=== PATIENT | male | born 1940 | race Caucasian/White ===

== ENCOUNTER 2023-01-03 04:34 | Emergency (ER) | payer MEDICARE, OTHER ==
[2023-01-03 05:44] LABS: APPEARANCE,URINE SLIGHTLY CLOUDY (CLEAR); BILIRUBIN,URINE NEGATIVE (NEGATIVE); COLOR,URINE YELLOW (YELLOW); GLUCOSE,URINE NEGATIVE (NEGATIVE); KETONES,URINE NEGATIVE (NEGATIVE); LEUKOCYTE ESTERASE,URINE NEGATIVE (NEGATIVE); NITRITE,URINE NEGATIVE (NEGATIVE); OCCULT BLOOD,URINE MODERATE (NEGATIVE); PH,URINE 7.5 (5.0-8.0); PROTEIN,URINE NEGATIVE (NEGATIVE); UROBILINOGEN,URINE 0.2 EU/dL (0.2-1.0)
[2023-01-03 05:51] LABS: AMORPHOUS SEDIMENT,URINE NOT SEEN; BACTERIA,URINE FEW; EPITHELIAL CELLS,URINE NOT SEEN; MUCUS,URINE NOT SEEN; RBC,URINE 40-50 (0-5); WBC,URINE 0-5 (0-5)
[2023-01-03 06:03] LABS: BASOPHILS ABSOLUTE AUTO 0.01 K/uL (0.00-0.10); BASOPHILS PERCENT AUTO 0.3 % (0.1-1.3); EOSINOPHILS ABSOLUTE AUTO 0.02 K/uL (0.00-0.40); EOSINOPHILS PERCENT AUTO 0.5 % (0.0-5.4); HEMATOCRIT 37.8 % (38.4-49.7); HEMOGLOBIN 14.6 g/dL (12.9-16.9); IMMATURE GRAN ABSOLUTE AUTO 0.03 K/uL (0.00-0.23); IMMATURE GRAN PERCENT AUTO 0.8 % (0.0-0.7); LYMPHOCYTES ABSOLUTE AUTO 0.55 K/uL (0.8-3.3); LYMPHOCYTES PERCENT AUTO 14.9 % (11.4-47.7); MEAN CORPUSCULAR HEMOGLOBIN 33.1 pg (31.6-35.5); MEAN CORPUSCULAR HGB CONC 38.6 g/dL (31.6-35.5); MEAN CORPUSCULAR VOLUME 85.7 fL (81.4-99.0); MONOCYTES ABSOLUTE AUTO 0.42 K/uL (0.20-0.90); MONOCYTES PERCENT AUTO 11.4 % (3.3-12.6); NEUTROPHILS ABSOLUTE AUTO 2.66 K/uL (1.0-7.6); NEUTROPHILS PERCENT AUTO 72.1 % (40.0-78.1); PLATELET COUNT,PLT 97 K/uL (130-375); RED BLOOD CELL COUNT 4.41 M/uL (4.14-5.76); WHITE BLOOD CELL COUNT,WBC 3.7 K/uL (3.2-11.0)
[2023-01-03 06:34] LABS: CALCIUM 8.2 mg/dL (8.5-10.1); CREATININE 0.7 mg/dL (0.8-1.3); EST CRCL DRUG DOSING (CG) 73.44 mL/min; POTASSIUM,K 3.8 mmol/L (3.6-5.2)
[2023-01-03 06:35] LABS: ANION GAP 10.8 mmol/L (5.0-14.0)
[2023-01-03] MEDS ORDERED: Sodium Chloride 0.9% 1,000 ML IV ONE (06:45)
== END 2023-01-03 08:22 | disposition home or self-care (01) ==
LOC: JP.ED 04:34
DX: R33.9 Retention of urine, unspecified (principal); U07.1 COVID-19; I10 Essential (primary) hypertension; Z79.899 Other long term (current) drug therapy
CPT/HCPCS: 36415; 80048; 81001; 85025; 99283; C1758; J7030

== ENCOUNTER 2023-03-03 15:33 | Emergency (ER) | payer MEDICARE ==
[2023-03-03] MEDS ORDERED: valACYclovir 1,000 MG Tab PO SCH ×2 (17:45→21:00)
== END 2023-03-03 17:42 | disposition home or self-care (01) ==
LOC: JP.ED 15:33
DX: B02.9 Zoster without complications (principal); I10 Essential (primary) hypertension; Z79.899 Other long term (current) drug therapy
CPT/HCPCS: 99282; A9270

== ENCOUNTER 2023-06-30 04:38 | Emergency (ER) | payer MEDICARE | END 2023-06-30 05:48 | disposition home or self-care (01) | LOC: JP.ED 04:38 | DX: L20.9 Atopic dermatitis, unspecified (principal); I10 Essential (primary) hypertension; Z86.16 Personal history of COVID-19 | CPT/HCPCS: 99282 ==

== ENCOUNTER 2024-04-11 06:00 | Emergency (ER) | payer MEDICARE ==
[2024-04-11 06:41] LABS: APPEARANCE,URINE CLEAR (CLEAR); BILIRUBIN,URINE NEGATIVE (NEGATIVE); COLOR,URINE YELLOW (YELLOW); GLUCOSE,URINE NEGATIVE (NEGATIVE); KETONES,URINE NEGATIVE (NEGATIVE); LEUKOCYTE ESTERASE,URINE NEGATIVE (NEGATIVE); NITRITE,URINE NEGATIVE (NEGATIVE); OCCULT BLOOD,URINE NEGATIVE (NEGATIVE); PH,URINE 7.5 (5.0-8.0); PROTEIN,URINE NEGATIVE (NEGATIVE); UROBILINOGEN,URINE 0.2 EU/dL (0.2-1.0)
[2024-04-11 06:57] LABS: AMORPHOUS SEDIMENT,URINE RARE; BACTERIA,URINE NOT SEEN; EPITHELIAL CELLS,URINE NOT SEEN; MUCUS,URINE NOT SEEN; RBC,URINE NOT SEEN (0-5); WBC,URINE NOT SEEN (0-5)
== END 2024-04-11 07:22 | disposition home or self-care (01) ==
LOC: JP.ED 06:00
DX: R33.9 Retention of urine, unspecified (principal); I10 Essential (primary) hypertension; Z90.49 Acquired absence of other specified parts of digestive tract; Z87.891 Personal history of nicotine dependence; Z79.899 Other long term (current) drug therapy
CPT/HCPCS: 51798; 81001; 99283-25

== ENCOUNTER 2024-05-02 15:29 | Emergency (ER) | payer MEDICARE ==
[2024-05-02 16:44] LABS: APPEARANCE,URINE TURBID (CLEAR); BILIRUBIN,URINE NEGATIVE (NEGATIVE); COLOR,URINE RED (YELLOW); GLUCOSE,URINE NEGATIVE (NEGATIVE); KETONES,URINE NEGATIVE (NEGATIVE); NITRITE,URINE NEGATIVE (NEGATIVE); PROTEIN,URINE TRACE mg/dL (NEGATIVE)
[2024-05-02 16:46] LABS: AMORPHOUS SEDIMENT,URINE NOT SEEN; BACTERIA,URINE RARE; EPITHELIAL CELLS,URINE RARE; MUCUS,URINE FEW; RBC,URINE 75-100 (0-5); WBC,URINE 0-5 (0-5)
[2024-05-02 16:47] LABS: LEUKOCYTE ESTERASE,URINE NEGATIVE (NEGATIVE); OCCULT BLOOD,URINE LARGE (NEGATIVE)
== END 2024-05-02 17:28 | disposition home or self-care (01) ==
LOC: JP.ED 15:29
DX: R31.9 Hematuria, unspecified (principal); I10 Essential (primary) hypertension; Z90.49 Acquired absence of other specified parts of digestive tract; Z79.899 Other long term (current) drug therapy
CPT/HCPCS: 81001; 99283

== ENCOUNTER 2024-05-03 00:36 | Emergency (ER) | payer MEDICARE ==
[2024-05-03 01:17] LABS: CALCIUM 8.7 mg/dL (8.5-10.1); CREATININE 0.9 mg/dL (0.8-1.3); EST CRCL DRUG DOSING (CG) 60.01 mL/min; POTASSIUM,K 3.4 mmol/L (3.6-5.2)
[2024-05-03 01:18] LABS: ANION GAP 10.4 mmol/L (5.0-14.0)
[2024-05-03 01:34] LABS: BASOPHILS ABSOLUTE AUTO 0.06 K/uL (0.00-0.10); BASOPHILS PERCENT AUTO 0.8 % (0.1-1.3); EOSINOPHILS ABSOLUTE AUTO 0.41 K/uL (0.00-0.40); EOSINOPHILS PERCENT AUTO 5.2 % (0.0-5.4); HEMATOCRIT 45.3 % (38.4-49.7); HEMOGLOBIN 17.6 g/dL (12.9-16.9); IMMATURE GRAN PERCENT AUTO 2.5 % (0.0-0.7); LYMPHOCYTES ABSOLUTE AUTO 0.88 K/uL (0.8-3.3); LYMPHOCYTES PERCENT AUTO 11.2 % (11.4-47.7); MEAN CORPUSCULAR HEMOGLOBIN 35.1 pg (31.6-35.5); MEAN CORPUSCULAR HGB CONC 38.9 g/dL (31.6-35.5); MEAN CORPUSCULAR VOLUME 90.2 fL (81.4-99.0); MONOCYTES ABSOLUTE AUTO 0.64 K/uL (0.20-0.90); MONOCYTES PERCENT AUTO 8.1 % (3.3-12.6); NEUTROPHILS ABSOLUTE AUTO 5.69 K/uL (1.0-7.6); NEUTROPHILS PERCENT AUTO 72.2 % (40.0-78.1); PLATELET COUNT,PLT 215 K/uL (130-375); RED BLOOD CELL COUNT 5.02 M/uL (4.14-5.76); WHITE BLOOD CELL COUNT,WBC 7.9 K/uL (3.2-11.0)
== END 2024-05-03 02:28 | disposition home or self-care (01) ==
LOC: JP.ED 00:36
DX: R33.9 Retention of urine, unspecified (principal); I10 Essential (primary) hypertension; Z90.49 Acquired absence of other specified parts of digestive tract; Z79.899 Other long term (current) drug therapy
CPT/HCPCS: 36415; 51702; 80048; 85025; 99284

== ENCOUNTER 2024-05-03 07:12 | Emergency (ER) | payer MEDICARE ==
[2024-05-03] MEDS: Sodium Chloride 0.9% 10 ML Syringe FLUSH PRN (08:50)
[2024-05-03] MEDS: Sodium Chloride 0.9% 60 ML IV SCH (08:50)
[2024-05-03] MEDS: Iopamidol 612 MG/ML 100 ML Bottle IV PRN (08:51)
== END 2024-05-03 10:57 | disposition home or self-care (01) ==
LOC: JP.ED 07:12
DX: N42.9 Disorder of prostate, unspecified (principal); I10 Essential (primary) hypertension; Z90.49 Acquired absence of other specified parts of digestive tract; Z79.899 Other long term (current) drug therapy
CPT/HCPCS: 51702; 74178; 99283; J3490; Q9967

== ENCOUNTER 2024-07-12 10:29 | Emergency (ER) | payer MEDICARE, OTHER ==
[2024-07-12 11:29] LABS: BASOPHILS ABSOLUTE AUTO 0.06 K/uL (0.00-0.10); BASOPHILS PERCENT AUTO 0.9 % (0.1-1.3); BICARBONATE,VENOUS 27.6 mmol/L; CARBOXYHEMOGLOBIN 1.8 % (0.0-1.6); EOSINOPHILS PERCENT AUTO 12.3 % (0.0-5.4); HEMOGLOBIN 14.2 g/dL (12.9-16.9); IMMATURE GRAN ABSOLUTE AUTO 0.17 K/uL (0.00-0.23); IMMATURE GRAN PERCENT AUTO 2.6 % (0.0-0.7); LYMPHOCYTES ABSOLUTE AUTO 0.64 K/uL (0.8-3.3); LYMPHOCYTES PERCENT AUTO 9.9 % (11.4-47.7); MEAN CORPUSCULAR HEMOGLOBIN 32.9 pg (31.6-35.5); MEAN CORPUSCULAR HGB CONC 36.4 g/dL (31.6-35.5); MEAN CORPUSCULAR VOLUME 90.5 fL (81.4-99.0); METHEMOGLOBIN 0.8 %; MONOCYTES ABSOLUTE AUTO 0.69 K/uL (0.20-0.90); MONOCYTES PERCENT AUTO 10.6 % (3.3-12.6); NEUTROPHILS ABSOLUTE AUTO 4.12 K/uL (1.0-7.6); NEUTROPHILS PERCENT AUTO 63.7 % (40.0-78.1); PCO2 VENOUS 39.6 mm/Hg; PH,VENOUS 7.458 (7.350-7.450); PLATELET COUNT,PLT 161 K/uL (130-375); RED BLOOD CELL COUNT 4.31 M/uL (4.14-5.76); TOTAL HEMOGLOBIN 14.7 g/dL (13.5-18.0); WHITE BLOOD CELL COUNT,WBC 6.5 K/uL (3.2-11.0)
[2024-07-12 11:31] LABS: PO2 VENOUS 24.2 mm/Hg
[2024-07-12 12:11] LABS: A/G RATIO 1.2 (1.2-2.2); ALANINE AMINOTRANSFERASE,ALT 21 U/L (12-78); ALBUMIN 3.5 g/dL (3.4-5.0); ALKALINE PHOSPHATASE 107 U/L (46-116); ASPARTATE AMNIOTRANSFERASE,AST 15 U/L (15-37); BLOOD UREA NITROGEN,BUN 10 mg/dL (7-18); CARBON DIOXIDE,CO2 27 mmol/L (21-32); CHLORIDE,CL 89 mmol/L (100-108); CREATININE 0.8 mg/dL (0.8-1.3); ESTIMATED GFR 87 mL/min (>60); GLUCOSE RANDOM 111 mg/dL (74-106); POTASSIUM,K 3.9 mmol/L (3.6-5.2); PRO B-TYPE NATRIUR PEPT,BNPPRO 145 pg/mL (5-450); PROTEIN TOTAL,TP 6.4 g/dL (6.4-8.2); SODIUM,NA 124 mmol/L (140-148); TROPONIN I HIGH SENSITIVITY 6.3 pg/mL (<=60.3)
[2024-07-12 12:13] LABS: ANION GAP 11.9 mmol/L (5.0-14.0)
[2024-07-12] MEDS: Sodium Chloride 0.9% 500 ML IV ONE (13:19)
[2024-07-12] MEDS: Sodium Chloride 0.9% 10 ML Syringe FLUSH PRN (15:25)
[2024-07-12] MEDS: Sodium Chloride 0.9% 80 ML IV ONE (15:25)
[2024-07-12] MEDS: Iopamidol 612 MG/ML 100 ML Bottle IV PRN (15:25)
== END 2024-07-12 15:14 | disposition home or self-care (01) ==
LOC: JP.ED 10:29
DX: E87.1 Hypo-osmolality and hyponatremia (principal); I10 Essential (primary) hypertension; Z90.49 Acquired absence of other specified parts of digestive tract; Z79.899 Other long term (current) drug therapy; Z88.0 Allergy status to penicillin
CPT/HCPCS: 36415; 71260; 80053; 82803; 83605; 83880; 84145; 84484; 85025; 85379; 93005; 99285; Q9967